=== PATIENT | male | born 1980 | race Caucasian/White ===

== ENCOUNTER 2017-04-17 10:17 | Observation (INO) | payer OTHER ==
[~2017-04-17] VITALS: Ht 188 cm; Wt 96.9 kg
[2017-04-17 11:15] LABS: BASOPHIL COUNT 0.1 K/uL (0-0.1); EOSINOPHIL (%) 1.8 % (0-5); EOSINOPHIL COUNT 0.1 K/uL (0-0.3); HEMATOCRIT 48.6 % (38.0-50.0); IMMATURE GRANULOCYTE (%) 0.3 % (0.0-0.7); INSTRUMENT ABS NEUTROPHIL CT 3.8 K/uL; LYMPHOCYTE COUNT 2.7 K/uL (1.0-2.8); MCH 28.7 PG (29.0-34.0); MCHC 33.7 G/DL (30.0-36.0); MCV 85.1 FL (86-99); MEAN PLAT.VOLUME 10.4 uM^3 (9.0-12.4); MONOCYTE (%) 7.7 % (3-12); MONOCYTE COUNT 0.6 K/uL (0-0.8); NEUTROPHIL (%) 52.1 % (45-76); NEUTROPHIL COUNT 3.8 K/uL (1.8-6.4); PLATELET COUNT 241 K/uL (156-360); RBC DIS.WIDTH-CV 13.2 % (11.8-14.6); RBC DIS.WIDTH-SD 40.4 % (39-53); RED BLOOD COUNT 5.71 M/uL (4.00-5.50); WHITE BLOOD COUNT 7.3 K/uL (4.1-10.2)
[2017-04-17 11:28] LABS: CHLORIDE 106 mEq/L (99-109); POTASSIUM 3.8 mEq/L (3.7-5.4); SODIUM 143 mEq/L (136-147)
[2017-04-17 11:29] LABS: GLUCOSE 114 mg/dL (70-99)
[2017-04-17 11:31] LABS: ANION GAP 12 MEQ/L (2-14)
[2017-04-17 11:33] LABS: GFR ESTIMATE (CALCULATED) > 59 mL/min/
[2017-04-17 11:34] LABS: UREA NITROGEN (BUN) 14 mg/dL (9-23)
[2017-04-17 12:29] LABS: ADD MIUA? YES; BILIRUBIN NEGATIVE; BLOOD LARGE; COLOR YELLOW ((YELLOW)); GLUCOSE (STRIP) NEGATIVE; KETONES NEGATIVE; LEUKOCYTES NEGATIVE; NITRITE NEGATIVE; PROTEIN (STRIP) 30; SPECIFIC GRAVITY 1.013 (1.000-1.030); UROBILINOGEN 0.2 MG/DL (0.2-1.0)
[2017-04-17 12:39] LABS: BACTERIA RARE /HPF; EPITHELIAL CELLS RARE /HPF; MUCUS NONE SEEN /LPF; RED BLOOD CELLS TNTC /HPF (0-5); WHITE BLOOD CELLS 0-5 /HPF (0-5)
[2017-04-17 16:07] VITALS: BP 133/88
[2017-04-17 19:00] VITALS: BP 140/82
[2017-04-18] VITALS: BP 118/77
[2017-04-18 05:59] LABS: ANION GAP 8 MEQ/L (2-14); CHLORIDE 106 MEQ/L (99-109); GFR ESTIMATE (CALCULATED) 49 mL/min/; GLUCOSE 98 mg/dL (70-99); POTASSIUM 4.3 MEQ/L (3.7-5.4); SAMPLE HEMOLYSIS CHECK 0; SAMPLE ICTERIC CHECK 0; SAMPLE LIPEMIA CHECK 0; SODIUM 140 MEQ/L (136-147); UREA NITROGEN (BUN) 16 mg/dL (9-23)
[2017-04-18 08:00] VITALS: BP 124/80
[2017-04-18 11:49] VITALS: BP 129/80
[2017-04-18 12:00] VITALS: BP 129/80
[2017-04-18] MEDS ORDERED: PERCOCET 5/31 TABLET PO (13:47)
[2017-04-18] MEDS ORDERED: ZOFRAN4 MG PO (13:47)
== END 2017-04-18 18:37 | disposition home or self-care (01) ==
LOC: EME 10:17 → EDOF 14:18 → 5WEST 16:06
PROVIDERS: Emergency Medicine; Internal Medicine
DX: N13.2 Hydronephrosis with renal and ureteral calculous obstruction (principal); Z87.442 Personal history of urinary calculi
CPT/HCPCS: 74176; 74420; 80048; 81003; 85025; 99281; 99285; C1758; C1769; C1876; G0378; J0690; J1200; J1885; J2250; J2270; J2405; J3010; J7030; J7120; S0028